=== PATIENT | male | born 1955 | race Native Hawaiian/Other Pacific Islander ===

== ENCOUNTER 2020-12-22 11:55 | Day surgery (SDC) | payer MEDICAID ==
[2020-12-22] VITALS (8 sets, daily range): BP systolic 120–161; BP diastolic 43–95
[2020-12-22] MEDS ORDERED: FOLI1TAB34 PO (13:00)
[2020-12-22] MEDS ORDERED: PHO667C PO (13:00)
[2020-12-22] MEDS ORDERED: midazolam 2 mg/2 ml injection ONE (13:49)
[2020-12-22] MEDS ORDERED: heparin 1,000unit/ml 10ml vial 10 ML ONE (13:49)
[2020-12-22] MEDS ORDERED: LIDOcaine 1%/PF 5ML 10 MG/ML VIAL ONE (13:49)
[2020-12-22] MEDS ORDERED: fentaNYL/PF 50MCG/1 ML 2ML syringe ONE (13:50)
[2020-12-22] MEDS ORDERED: tPA-cathflo 2 MG/2 ml IV flush ONE (13:57)
== END 2020-12-22 16:45 | disposition home or self-care (01) ==
LOC: SSTAY O 11:55
PROVIDERS: ATTEND Radiology Vascular & Interventional Radiology
DX: T82.590A Other mechanical complication of surgically created arteriovenous fistula, initial encounter (principal); E11.22 Type 2 diabetes mellitus with diabetic chronic kidney disease; I12.0 Hypertensive chronic kidney disease with stage 5 chronic kidney disease or end stage renal disease; N18.6 End stage renal disease
CPT/HCPCS: 36415; 36558; 36904; 76937; 87426; C1750; C1769; C1894; J1644; J2250; J2997; J3010; 99152; 99153; A9270

== ENCOUNTER 2022-08-20 21:28 | Emergency (ER) | payer MEDICAID ==
[~2022-08-20] VITALS: Ht 165.1 cm; Wt 77.3 kg
[~2022-08-20 21:28] MED LIST: ACET-812 PO; FOLI1TAB34 PO; PHO667C PO
[2022-08-20 21:38] VITALS: BP 124/70
[2022-08-20 22:09] LABS: BASOPHILS # (AUTO) 0.1 X10'3 (0-0.2); BASOPHILS % (AUTO) 1.1 % (0-1); EOSINOPHILS # (AUTO) 0.4 X10'3 (0-0.9); EOSINOPHILS % (AUTO) 4.9 % (0-6); HEMATOCRIT 27.7 % (42.0-52.0); HEMOGLOBIN 9.5 g/dl (14.0-17.9); LYMPHOCYTES # (AUTO) 1.1 X10'3 (1.1-4.8); MEAN CORPUSCULAR HEMOGLOBIN 32.5 PG (27.0-31.0); MEAN CORPUSCULAR HGB CONC 34.1 g/dL (33.0-36.5); MEAN CORPUSCULAR VOLUME 95.3 FL (78-98); MEAN PLATELET VOLUME 9.1 FL (7.4-10.4); MONOCYTES # (AUTO) 0.5 X10'3 (0-0.9); MONOCYTES % (AUTO) 6.1 % (2-12); NEUTROPHILS # (AUTO) 6.1 X10'3 (1.8-7.7); NEUTROPHILS % (AUTO) 74.9 % (42-75); PLATELET COUNT 110 X10'3 (140-440); RED BLOOD COUNT 2.91 X10'6 (4.70-6.10); RED CELL DISTRIBUTION WIDTH 14.9 % (11.5-14.5); WHITE BLOOD COUNT 8.1 X10'3 (4.5-11.0)
[2022-08-20 22:17] LABS: ALANINE AMINOTRANSFERASE 6 U/L (12-78); ALBUMIN 2.7 G/DL (3.4-5.0); ALBUMIN/GLOBULIN RATIO 0.6 (1.1-1.5); ALKALINE PHOSPHATASE 59 IU/L (46-116); ANION GAP 6 (8-16); ASPARTATE AMINO TRANSFERASE 14 U/L (10-37); BILIRUBIN,TOTAL 0.3 MG/DL (0.1-1.0); BLOOD UREA NITROGEN 37 MG/DL (7-18); CALCIUM 8.5 MG/DL (8.5-10.1); CHLORIDE 100 MMOL/L (99-107); CREATININE 6.17 MG/DL (0.60-1.10); GLUCOSE 103 MG/DL (70-104); POTASSIUM 3.6 MMOL/L (3.5-5.1); SODIUM 135 MMOL/L (135-145); TOTAL CARBON DIOXIDE 29.3 MMOL/L (24-32); TOTAL PROTEIN 6.9 G/DL (6.4-8.2); eGFR 9 ML/MIN
[2022-08-21] MEDS ORDERED: FOLI1TAB34 PO (23:34)
== END 2022-08-21 03:18 | disposition left against medical advice (07) ==
LOC: MERGE 21:29 → ER 21:29
DX: M79.89 Other specified soft tissue disorders (principal); Z53.21 Procedure and treatment not carried out due to patient leaving prior to being seen by health care provider
CPT/HCPCS: 36415; 80053; 83605; 84145; 85025; 87040; 87077; 87186

== ENCOUNTER 2022-08-21 15:31 | Inpatient (IN) | payer MEDICAID ==
[~2022-08-21] VITALS: Ht 165.1 cm; Wt 77.3 kg
[2022-08-21] MEDS ORDERED: piperacillin/tazo 3.375gm/50ml 50 ML IV ONE (16:05)
[2022-08-21] MEDS ORDERED: vancomycin/NS 1 GM ADD-VANTAGE 250 ML IV ONE (16:05)
[2022-08-21 16:26] LABS: BASOPHILS % (AUTO) 0.7 % (0-1); EOSINOPHILS # (AUTO) 0.4 X10'3 (0-0.9); EOSINOPHILS % (AUTO) 7.3 % (0-6); HEMATOCRIT 26.5 % (42.0-52.0); LYMPHOCYTES # (AUTO) 0.9 X10'3 (1.1-4.8); LYMPHOCYTES % (AUTO) 16.2 % (21-51); MEAN CORPUSCULAR HEMOGLOBIN 32.7 PG (27.0-31.0); MEAN CORPUSCULAR VOLUME 96.1 FL (78-98); MEAN PLATELET VOLUME 9.3 FL (7.4-10.4); MONOCYTES # (AUTO) 0.4 X10'3 (0-0.9); MONOCYTES % (AUTO) 7.8 % (2-12); NEUTROPHILS # (AUTO) 3.9 X10'3 (1.8-7.7); PLATELET COUNT 116 X10'3 (140-440); RED BLOOD COUNT 2.76 X10'6 (4.70-6.10); RED CELL DISTRIBUTION WIDTH 14.8 % (11.5-14.5); WHITE BLOOD COUNT 5.8 X10'3 (4.5-11.0)
[2022-08-21 16:28] LABS: ALANINE AMINOTRANSFERASE 6 U/L (12-78); ALBUMIN 2.6 G/DL (3.4-5.0); ALBUMIN/GLOBULIN RATIO 0.6 (1.1-1.5); ALKALINE PHOSPHATASE 58 IU/L (46-116); ANION GAP 3 (8-16); ASPARTATE AMINO TRANSFERASE 14 U/L (10-37); BILIRUBIN,TOTAL 0.3 MG/DL (0.1-1.0); BLOOD UREA NITROGEN 43 MG/DL (7-18); BUN/CREATININE RATIO 6.3 (5.4-32.0); C-REACTIVE PROTEIN 7.68 MG/DL (0.0-0.5); CALCIUM 8.8 MG/DL (8.5-10.1); CHLORIDE 101 MMOL/L (99-107); GLUCOSE 95 MG/DL (70-104); POTASSIUM 3.6 MMOL/L (3.5-5.1); SODIUM 135 MMOL/L (135-145); TOTAL CARBON DIOXIDE 30.8 MMOL/L (24-32); TOTAL PROTEIN 6.9 G/DL (6.4-8.2); eGFR 8 ML/MIN
[2022-08-21] MEDS ORDERED: magnesium 4gm in 100ml NS 100 ML IV PRN (17:35)
[2022-08-21] MEDS ORDERED: POTASSIUM BICARB 20meq eff tab 20 MEQ TABLET.EFF PO PRN ×2 (17:35)
[2022-08-21] MEDS ORDERED: magnesium 2GM in 50ml NS 50 ML IV PRN (17:35)
[2022-08-21] MEDS ORDERED: potassium CL 10mEq/100ml bag 100 ML IV PRN (17:35)
[2022-08-21] MEDS ORDERED: acetaminophen 325mg tablet PO PRN (17:35)
[2022-08-21] MEDS ORDERED: magnesium Cl slow-release 64mg tablet PO PRN (17:35)
[2022-08-21 18:10] LABS: MAGNESIUM 2.1 MG/DL (1.5-2.4)
[2022-08-21] MEDS: K and/or MAG REPLACEMENT MC SCH (20:00)
--- NOTE | 2022-08-21 21:51 | NUR ---
first page sent to hospitalist regarding critical lab value
[2022-08-21] MEDS ORDERED: FOLI1TAB34 PO (23:34)
[2022-08-22] MEDS ORDERED: piperacillin/tazo 3.375gm/50ml 50 ML IV SCH ×2 (06:26)
[2022-08-22 07:44] LABS: BASOPHILS # (AUTO) 0.1 X10'3 (0-0.2); BASOPHILS % (AUTO) 0.9 % (0-1); EOSINOPHILS # (AUTO) 0.4 X10'3 (0-0.9); EOSINOPHILS % (AUTO) 7.2 % (0-6); HEMATOCRIT 29.6 % (42.0-52.0); HEMOGLOBIN 9.6 g/dl (14.0-17.9); LYMPHOCYTES # (AUTO) 1.3 X10'3 (1.1-4.8); LYMPHOCYTES % (AUTO) 23.6 % (21-51); MEAN CORPUSCULAR HEMOGLOBIN 31.8 PG (27.0-31.0); MEAN CORPUSCULAR HGB CONC 32.4 g/dL (33.0-36.5); MEAN CORPUSCULAR VOLUME 98.2 FL (78-98); MEAN PLATELET VOLUME 8.6 FL (7.4-10.4); MONOCYTES # (AUTO) 0.5 X10'3 (0-0.9); MONOCYTES % (AUTO) 9.9 % (2-12); NEUTROPHILS # (AUTO) 3.2 X10'3 (1.8-7.7); NEUTROPHILS % (AUTO) 58.4 % (42-75); PLATELET COUNT 107 X10'3 (140-440); RED BLOOD COUNT 3.02 X10'6 (4.70-6.10); RED CELL DISTRIBUTION WIDTH 15.3 % (11.5-14.5); WHITE BLOOD COUNT 5.4 X10'3 (4.5-11.0)
[2022-08-22] MEDS: K and/or MAG REPLACEMENT MC SCH ×2 (07:57→20:00)
[2022-08-22] MEDS ORDERED: vancomycin/NS 1 GM ADD-VANTAGE 250 ML IV PRN (08:00)
[2022-08-22 08:16] LABS: ALBUMIN 2.4 G/DL (3.4-5.0); ANION GAP 9 (8-16); BLOOD UREA NITROGEN 48 MG/DL (7-18); BUN/CREATININE RATIO 6.4 (5.4-32.0); CALCIUM 8.5 MG/DL (8.5-10.1); CHLORIDE 102 MMOL/L (99-107); CREATININE 7.52 MG/DL (0.60-1.10); GLUCOSE 83 MG/DL (70-104); MAGNESIUM 2.1 MG/DL (1.5-2.4); POTASSIUM 4.2 MMOL/L (3.5-5.1); SODIUM 138 MMOL/L (135-145); TOTAL CARBON DIOXIDE 26.6 MMOL/L (24-32); VANCOMYCIN,RANDOM 14.7 UG/ML; eGFR 7 ML/MIN
[2022-08-22] MEDS ORDERED: vancomycin inj 500 MG in normal saline 100ml IV soln 100 ML IV ONE (08:25)
[2022-08-22] MEDS: calcium acetate 667mg (PhosLO) capsule PO SCH ×2 (13:00→21:00)
--- NOTE | 2022-08-22 17:59 | NUR ---
Spoke to OR charge; pt no longer going to surgery today. OK to eat dinner and NPO after midnight.
--- NOTE | 2022-08-23 01:10 | NUR ---
Patient in room ED 6. I have received report from Betina SANFORD and had the opportunity to ask questions and assume patient care. Addendum: 08/23/22 at 0235 by Lucero Torres RN Pt made it to floor @ 0115 on hospital bed. VSS, Pt afebrile. Pt on RA. No s/s of distress. Pt denies any c/o pain. BLL, call light within reach, frequently used items in reach, frequent rounding, litigation legal assistant socks on.Will continue to monitor.
[2022-08-23 01:15] VITALS: BP 130/80
--- NOTE | 2022-08-23 02:32 | NUR ---
Pts Daughter Cheryl . Pts daughter says pt speaks Chuukese.
[2022-08-23] MEDS: VANCOMYCIN LEVEL IV SCH (03:00)
--- NOTE | 2022-08-23 06:35 | NUR ---
Patient in room PCU 3018. I have received report from Isidra SANFORD and had the opportunity to ask questions and assume patient care.
--- NOTE | 2022-08-23 06:54 | NUR ---
Problems reprioritized. Patient report given, questions answered & plan of care reviewed with Vidhi SANFORD.
[2022-08-23 07:15] VITALS: BP 145/70
[2022-08-23] MEDS ORDERED: mannitol 12.5gm/50mL VIAL IV ONE (07:50)
[2022-08-23] MEDS ORDERED: normal saline 1000ml 100 ML IV PRN (07:50)
[2022-08-23] MEDS ORDERED: heparin 1,000 units/ml 10ml inj HE ONE ×2 (07:55→10:25)
[2022-08-23] MEDS: vitamin B comp w/Vit. C tab 1 TAB TABLET PO SCH (08:00)
[2022-08-23] MEDS: calcium acetate 667mg (PhosLO) capsule PO SCH ×3 (08:00→21:00)
[2022-08-23] MEDS: K and/or MAG REPLACEMENT MC SCH ×2 (08:00→20:00)
[2022-08-23 08:14] LABS: BASOPHILS # (AUTO) 0.1 X10'3 (0-0.2); BASOPHILS % (AUTO) 1.3 % (0-1); EOSINOPHILS # (AUTO) 0.5 X10'3 (0-0.9); EOSINOPHILS % (AUTO) 8.4 % (0-6); HEMATOCRIT 29.8 % (42.0-52.0); HEMOGLOBIN 9.9 g/dl (14.0-17.9); LYMPHOCYTES # (AUTO) 1.4 X10'3 (1.1-4.8); LYMPHOCYTES % (AUTO) 25.4 % (21-51); MEAN CORPUSCULAR HGB CONC 33.2 g/dL (33.0-36.5); MEAN CORPUSCULAR VOLUME 96.3 FL (78-98); MEAN PLATELET VOLUME 8.4 FL (7.4-10.4); MONOCYTES # (AUTO) 0.5 X10'3 (0-0.9); MONOCYTES % (AUTO) 9.1 % (2-12); NEUTROPHILS % (AUTO) 55.8 % (42-75); PLATELET COUNT 133 X10'3 (140-440); RED BLOOD COUNT 3.09 X10'6 (4.70-6.10); RED CELL DISTRIBUTION WIDTH 14.8 % (11.5-14.5); WHITE BLOOD COUNT 5.4 X10'3 (4.5-11.0)
[2022-08-23 08:46] LABS: ALBUMIN 2.7 G/DL (3.4-5.0); ANION GAP 11 (8-16); BLOOD UREA NITROGEN 53 MG/DL (7-18); BUN/CREATININE RATIO 6.2 (5.4-32.0); CALCIUM 8.3 MG/DL (8.5-10.1); CHLORIDE 101 MMOL/L (99-107); CREATININE 8.58 MG/DL (0.60-1.10); GLUCOSE 78 MG/DL (70-104); MAGNESIUM 2.3 MG/DL (1.5-2.4); POTASSIUM 4.3 MMOL/L (3.5-5.1); SODIUM 137 MMOL/L (135-145); VANCOMYCIN,RANDOM 18.9 UG/ML; eGFR 6 ML/MIN
[2022-08-23 11:00] VITALS: BP 147/95
[2022-08-23 15:00] VITALS: BP 112/73
--- NOTE | 2022-08-23 18:41 | NUR ---
Problems reprioritized. Patient report given, questions answered & plan of care reviewed with Leah Lynn RN.
--- NOTE | 2022-08-23 18:45 | NUR ---
Patient in room PCU 3018. I have received report from CHANCE SANFORD AND LEIGH SANFORD and had the opportunity to ask questions and assume patient care.
[2022-08-23 19:00] VITALS: BP 133/92
[2022-08-23 19:32] VITALS: BP 133/92
[2022-08-23] MEDS ORDERED: dextrose 50%-water 50ml dispensing syringe IV ONE (19:45)
[2022-08-23] MEDS ORDERED: midazolam 1 mg/ML 2ml injection ONE (21:25)
[2022-08-23] MEDS ORDERED: etomidate 2mg/ml inj. ONE (21:25)
[2022-08-23] MEDS ORDERED: morphine 2 MG/ML inj. syringe IV PRN (21:40)
[2022-08-23] MEDS ORDERED: labetalol 20mg/4ml (5mg/ml) syringe IV PRN (21:40)
[2022-08-23] MEDS ORDERED: hydrALAZINE 20mg/ml inj. IV PRN (21:40)
[2022-08-23] MEDS ORDERED: ringers solution, lacted 1,000 ML IV SCH (21:40)
[2022-08-23] MEDS ORDERED: ondansetron/PF 4mg/2ml inj IV PRN (21:40)
[2022-08-23] MEDS ORDERED: fentaNYL/PF 50MCG/1 ML 2ML syringe IV PRN ×2 (21:40)
[2022-08-23] MEDS ORDERED: morphine 4 MG/ML inj SYRINge IV PRN (21:40)
[2022-08-23] MEDS ORDERED: sevoflurane 250ml liquid IH ONE (21:58)
--- NOTE | 2022-08-23 22:00 | NUR ---
PATIENT LEFT WITH OR TECH FOR REMOVAL OF INFECTED ARTERIAL FISTULA.
[2022-08-23] MEDS ORDERED: albumin (Human) 5% 250ml 250 ML IV ONE (22:20)
[2022-08-23] MEDS ORDERED: heparin 10,000 units/1 ML INJ ONE (22:26)
[2022-08-23] MEDS ORDERED: vancomycin 1,000mg inj ONE (22:32)
[2022-08-24] VITALS (17 sets, daily range): BP systolic 98–134; BP diastolic 58–79
--- NOTE | 2022-08-24 00:15 | NUR ---
PT ARRIVED TO VIA BED ACCOMPANIED BY DR CROOK-ANESTHESIA REPORT GIVEN, PT SLEEPY, VSS, LEFT ARM-WRAPPED WITH WOUND VAC AT 75MMHG SUCTION-CDI, DOPPLER TO ULNAR PULSE PRESENTM FINGERS WARM/PINK, PIV 20G TO RIGHT F/A, CHRISTIANO TO RIGHT CHEST-HAD HD TODAY.
--- NOTE | 2022-08-24 01:05 | NUR ---
HAD DTRS COME IN TO HELP WITH TRANSLATION-PT COLD AND PAINFUL IN LEFT ARM, PA HUGGER APPLIED AND FENTANYL 50MCG GIVEN FOR COMFORT-PT NOW WARM AND RESTING COMFORTABLY, VSS, PULSE STILL PRESENT VIA DOPPLER TO LEFT WRIST, DRSG-CDI WITH WV AT 75MMHG, TAKEN TO CICU-BED 2006 FOR OBSERVATION FOR THE THE NOC, REPORT GIVEN TO ANA M LANGE RN-ALL QUESTIONS ANSWERED, DTRS PRESENT WELL TO ASSIST WITH TRANSLATION. TELE BOX WITH PT.
--- NOTE | 2022-08-24 01:30 | NUR ---
Received pt from recovery at 0110; pt drowsy but arousable; placed on monitor w/VSS; sats good on room air; kerlix drsg in place over wound vac in LFA; fingers on L hand warm, good color; good pulse w/doppler to ulnar artery L wrist. Daughter Pauline at bedside to help w/and translations needed.
[2022-08-24] MEDS: VANCOMYCIN LEVEL IV SCH (03:00)
[2022-08-24] MEDS: HYDROcodone/acetaminophen 10/325mg tab PO PRN (04:59)
--- NOTE | 2022-08-24 05:20 | NUR ---
Pt sleeping last few hours; VSS, pulse unchanged, strong w/doppler; no signs of bleeding, minimal output in wound vac; pt awake, incontinent small amt of urine, c/o pain 10/10 in L shoulder and forearm, medicated w/norco for pain; daughter remains at bedside to interpret; report given to CLARIBEL Leon and pt transfered in bed on tele to room 3028a.
--- NOTE | 2022-08-24 05:25 | NUR ---
PATIENT TRANSFERRED TO ROOM 3018B FROM CICU. PLACED COMFORTABLE IN BED. VITAL SIGNS TAKEN AND RECORDED.
--- NOTE | 2022-08-24 06:30 | NUR ---
Problems reprioritized. Patient report given, questions answered & plan of care reviewed with AMANDA SANFORD.
[2022-08-24 07:29] LABS: BASOPHILS # (AUTO) 0.1 X10'3 (0-0.2); BASOPHILS % (AUTO) 1.1 % (0-1); EOSINOPHILS # (AUTO) 0.3 X10'3 (0-0.9); HEMATOCRIT 25.1 % (42.0-52.0); HEMOGLOBIN 8.6 g/dl (14.0-17.9); LYMPHOCYTES % (AUTO) 16.9 % (21-51); MEAN CORPUSCULAR HEMOGLOBIN 32.6 PG (27.0-31.0); MEAN CORPUSCULAR HGB CONC 34.3 g/dL (33.0-36.5); MEAN CORPUSCULAR VOLUME 94.9 FL (78-98); MONOCYTES # (AUTO) 0.5 X10'3 (0-0.9); MONOCYTES % (AUTO) 8.2 % (2-12); NEUTROPHILS # (AUTO) 3.9 X10'3 (1.8-7.7); NEUTROPHILS % (AUTO) 67.8 % (42-75); PLATELET COUNT 106 X10'3 (140-440); RED BLOOD COUNT 2.65 X10'6 (4.70-6.10); RED CELL DISTRIBUTION WIDTH 14.6 % (11.5-14.5); WHITE BLOOD COUNT 5.8 X10'3 (4.5-11.0)
[2022-08-24] MEDS ORDERED: vancomycin inj 500 MG in normal saline 100ml IV soln 100 ML IV PRN (08:00)
[2022-08-24] MEDS: K and/or MAG REPLACEMENT MC SCH ×2 (08:00→20:00)
[2022-08-24 08:06] LABS: ALBUMIN 2.9 G/DL (3.4-5.0); ANION GAP 12 (8-16); BLOOD UREA NITROGEN 28 MG/DL (7-18); BUN/CREATININE RATIO 4.8 (5.4-32.0); CALCIUM 7.7 MG/DL (8.5-10.1); CHLORIDE 103 MMOL/L (99-107); CREATININE 5.78 MG/DL (0.60-1.10); GLUCOSE 82 MG/DL (70-104); POTASSIUM 3.8 MMOL/L (3.5-5.1); SODIUM 139 MMOL/L (135-145); TOTAL CARBON DIOXIDE 24.5 MMOL/L (24-32); eGFR 10 ML/MIN
[2022-08-24] MEDS: vitamin B comp w/Vit. C tab 1 TAB TABLET PO SCH (08:56)
[2022-08-24] MEDS: calcium acetate 667mg (PhosLO) capsule PO SCH ×3 (08:56→20:47)
[2022-08-24] MEDS ORDERED: normal saline 1000ml 100 ML IV PRN (11:15)
[2022-08-24] MEDS ORDERED: heparin 1,000 units/ml 10ml inj HE ONE (11:20)
[2022-08-24] MEDS: cefepime 1GM/NS ADD-VANTAGE 100 ML IV SCH (13:01)
--- NOTE | 2022-08-24 18:47 | NUR ---
Report given to Leah Lynn RN, who is resuming care, Pt awake in bed eating dinner with daughters at bedside. No current distress on new concerns. Reviewed [facility] Student Nurse charting.
--- NOTE | 2022-08-24 18:48 | NUR ---
Report given to Raf SANFORD, resuming care. Pt is eating dinner with daughters at the bedside. No changes in condition and not in distress. Bianca Naik RN reviewed care and charting.
--- NOTE | 2022-08-24 18:50 | NUR ---
Patient in room PCU 3018. I have received report from AMANDA SANFORD and had the opportunity to ask questions and assume patient care.
[2022-08-24] MEDS: HYDROcodone/acetaminophen 5mg/325mg tablet PO PRN (20:48)
[2022-08-25] VITALS (7 sets, daily range): BP systolic 104–123; BP diastolic 68–93
[2022-08-25] MEDS: VANCOMYCIN LEVEL IV SCH (03:00)
--- NOTE | 2022-08-25 06:30 | NUR ---
Problems reprioritized. Patient report given, questions answered & plan of care reviewed with AMANDA SANFORD.
[2022-08-25 07:18] LABS: BASOPHILS # (AUTO) 0.1 X10'3 (0-0.2); BASOPHILS % (AUTO) 1.1 % (0-1); EOSINOPHILS # (AUTO) 0.4 X10'3 (0-0.9); EOSINOPHILS % (AUTO) 7.4 % (0-6); HEMATOCRIT 28.1 % (42.0-52.0); HEMOGLOBIN 9.8 g/dl (14.0-17.9); LYMPHOCYTES # (AUTO) 1.1 X10'3 (1.1-4.8); LYMPHOCYTES % (AUTO) 20.8 % (21-51); MEAN CORPUSCULAR HEMOGLOBIN 32.8 PG (27.0-31.0); MEAN CORPUSCULAR HGB CONC 34.8 g/dL (33.0-36.5); MEAN CORPUSCULAR VOLUME 94.4 FL (78-98); MONOCYTES # (AUTO) 0.5 X10'3 (0-0.9); NEUTROPHILS # (AUTO) 3.2 X10'3 (1.8-7.7); NEUTROPHILS % (AUTO) 61.7 % (42-75); PLATELET COUNT 124 X10'3 (140-440); RED BLOOD COUNT 2.97 X10'6 (4.70-6.10); RED CELL DISTRIBUTION WIDTH 14.9 % (11.5-14.5); WHITE BLOOD COUNT 5.2 X10'3 (4.5-11.0)
[2022-08-25 07:44] LABS: ALBUMIN 2.8 G/DL (3.4-5.0); ANION GAP 9 (8-16); BLOOD UREA NITROGEN 40 MG/DL (7-18); BUN/CREATININE RATIO 5.4 (5.4-32.0); CALCIUM 8.3 MG/DL (8.5-10.1); CHLORIDE 103 MMOL/L (99-107); CREATININE 7.37 MG/DL (0.60-1.10); GLUCOSE 89 MG/DL (70-104); MAGNESIUM 2.1 MG/DL (1.5-2.4); POTASSIUM 4.5 MMOL/L (3.5-5.1); SODIUM 137 MMOL/L (135-145); TOTAL CARBON DIOXIDE 25.3 MMOL/L (24-32); eGFR 7 ML/MIN
[2022-08-25 07:52] LABS: VANCOMYCIN,TROUGH 23.1 UG/ML (6.0-14.0)
[2022-08-25] MEDS: K and/or MAG REPLACEMENT MC SCH ×2 (08:00→20:00)
--- NOTE | 2022-08-25 08:07 | NUR ---
Page to Dr Mccarthy regarding critical vanco trough. Bianca, [facility] [address]018[address] FYI: Vanco trough 23.1. But it was not given yesterday and is only a prn dose for 12-15.
[2022-08-25] MEDS: vitamin B comp w/Vit. C tab 1 TAB TABLET PO SCH (08:20)
[2022-08-25] MEDS: calcium acetate 667mg (PhosLO) capsule PO SCH ×3 (08:20→21:52)
[2022-08-25] MEDS: cefepime 1GM/NS ADD-VANTAGE 100 ML IV SCH (08:20)
[2022-08-25] MEDS: heparin, porcine 5000 units/ml vial SQ SCH ×2 (08:21→20:00)
[2022-08-25] MEDS ORDERED: vancomycin/NS 1 GM ADD-VANTAGE 250 ML IV PRN (12:44)
[2022-08-25] MEDS ORDERED: vancomycin inj 500 MG in normal saline 100ml IV soln 100 ML IV PRN (12:48)
--- NOTE | 2022-08-25 18:54 | NUR ---
Report given to Ellis SANFORD. Pt is eating dinner with family by the bedside. Bianca SANFORD looked over care and charting.
--- NOTE | 2022-08-25 19:14 | NUR ---
Report given to Ellis SANFORD, patient in bed with family at bedside. No current complaints.
[2022-08-25] MEDS: HYDROcodone/acetaminophen 5mg/325mg tablet PO PRN (20:14)
[2022-08-26] VITALS (10 sets, daily range): BP systolic 65–130; BP diastolic 38–80
[2022-08-26] MEDS: VANCOMYCIN LEVEL IV SCH (03:00)
[2022-08-26 06:26] LABS: BASOPHILS % (AUTO) 0.9 % (0-1); EOSINOPHILS # (AUTO) 0.4 X10'3 (0-0.9); EOSINOPHILS % (AUTO) 8.3 % (0-6); HEMATOCRIT 26.8 % (42.0-52.0); LYMPHOCYTES # (AUTO) 0.9 X10'3 (1.1-4.8); LYMPHOCYTES % (AUTO) 17.7 % (21-51); MEAN CORPUSCULAR HGB CONC 33.5 g/dL (33.0-36.5); MEAN CORPUSCULAR VOLUME 95.5 FL (78-98); MEAN PLATELET VOLUME 8.5 FL (7.4-10.4); MONOCYTES # (AUTO) 0.4 X10'3 (0-0.9); MONOCYTES % (AUTO) 8.2 % (2-12); NEUTROPHILS # (AUTO) 3.4 X10'3 (1.8-7.7); NEUTROPHILS % (AUTO) 64.9 % (42-75); PLATELET COUNT 111 X10'3 (140-440); RED CELL DISTRIBUTION WIDTH 14.9 % (11.5-14.5); WHITE BLOOD COUNT 5.3 X10'3 (4.5-11.0)
[2022-08-26 06:56] LABS: ALBUMIN 2.6 G/DL (3.4-5.0); ANION GAP 11 (8-16); BLOOD UREA NITROGEN 51 MG/DL (7-18); BUN/CREATININE RATIO 5.8 (5.4-32.0); CALCIUM 8.6 MG/DL (8.5-10.1); CHLORIDE 102 MMOL/L (99-107); CREATININE 8.74 MG/DL (0.60-1.10); GLUCOSE 94 MG/DL (70-104); POTASSIUM 4.5 MMOL/L (3.5-5.1); SODIUM 136 MMOL/L (135-145); TOTAL CARBON DIOXIDE 22.6 MMOL/L (24-32); VANCOMYCIN,RANDOM 23.3 UG/ML; eGFR 6 ML/MIN
--- NOTE | 2022-08-26 07:17 | NUR ---
Patient in room PCU 3018. I have received report from Ellis SANFORD and had the opportunity to ask questions and assume patient care.
--- NOTE | 2022-08-26 07:19 | NUR ---
Problems reprioritized. Patient report given, questions answered & plan of care reviewed with MAY. Addendum: 08/26/22 at 0719 by Richard Mckay RN Amended: Links added.
[2022-08-26] MEDS ORDERED: heparin 1,000 units/ml 10ml inj HE ONE ×2 (08:00→09:50)
[2022-08-26] MEDS ORDERED: EPOETIN ALFA-EPBX 20,000 UNIT/ML 1 ML MDV IV ONE (08:00)
[2022-08-26] MEDS: K and/or MAG REPLACEMENT MC SCH ×2 (08:00→20:00)
[2022-08-26] MEDS ORDERED: normal saline 1000ml 100 ML IV PRN (08:00)
--- NOTE | 2022-08-26 08:53 | NUR ---
Initial: Pt admitted w/ LUE cellulitis and infected dialysis graft per EMR. Currently on Renal diet w/ avg intake 65% x 4 meals though is up to 100% most recent 2, will be meeting est needs if PO trends continue. Pt on HD, last treatment 08/23 w/ 1457mL out per documentation. LBM 08/24. No nutrition intervention implemented at this time, will continue to monitor. Recs; 1. Continue Renal diet as tolerated 2. Bowel care per rx 3. Scaled wts w/ HD Addendum: 08/26/22 at [address] Amended: Links added.
[2022-08-26] MEDS: vitamin B comp w/Vit. C tab 1 TAB TABLET PO SCH (09:15)
[2022-08-26] MEDS: heparin, porcine 5000 units/ml vial SQ SCH ×2 (09:15→19:59)
[2022-08-26] MEDS: calcium acetate 667mg (PhosLO) capsule PO SCH ×3 (09:16→20:52)
[2022-08-26] MEDS ORDERED: cefazolin/dext.iso 2gm/100ml 100 ML IV SCH (11:45)
[2022-08-26] MEDS: ondansetron/PF 4mg/2ml inj IV PRN ×2 (12:11→18:24)
[2022-08-26] MEDS: normal saline 1000ml 1,000 ML IVB SCH ×4 (12:15→15:15)
[2022-08-26] MEDS ORDERED: albumin (human) 25% 100 ML IV solution IV ONE (12:15)
[2022-08-26 12:24] LABS: ABG BASE EXCESS -6.7 mmol/L (-2.0-2.0); ABG HCO3 18.7 mmol/L (22.0-26.0); ABG OXYGEN SATURATION 97.3 % (94-97); ALLEN'S TEST POSITIVE; FCOHb 0.3 % (0.0-3.9); FLOW 4 L/min; FMetHb 0.2 % (0.0-1.5); FO2Hb 96.8 % (94-97); PATIENT TEMPERATURE 36.5; TOTAL HEMOGLOBIN 9.5 G/dl (14.0-17.9)
[2022-08-26] MEDS ORDERED: normal saline 1000ml 1,000 ML IV ONE (12:25)
[2022-08-26] MEDS: albumin (human) 25% 100 ML IV solution IV SCH (12:45)
[2022-08-26 12:58] LABS: BASOPHILS % (AUTO) 0.8 % (0-1); EOSINOPHILS # (AUTO) 0.2 X10'3 (0-0.9); EOSINOPHILS % (AUTO) 4.6 % (0-6); LYMPHOCYTES # (AUTO) 1.9 X10'3 (1.1-4.8); LYMPHOCYTES % (AUTO) 36.8 % (21-51); MEAN CORPUSCULAR HEMOGLOBIN 32.3 PG (27.0-31.0); MEAN CORPUSCULAR HGB CONC 33.2 g/dL (33.0-36.5); MEAN CORPUSCULAR VOLUME 97.1 FL (78-98); MEAN PLATELET VOLUME 8.3 FL (7.4-10.4); MONOCYTES # (AUTO) 0.3 X10'3 (0-0.9); MONOCYTES % (AUTO) 5.8 % (2-12); NEUTROPHILS # (AUTO) 2.7 X10'3 (1.8-7.7); RED BLOOD COUNT 1.99 X10'6 (4.70-6.10); RED CELL DISTRIBUTION WIDTH 14.9 % (11.5-14.5); WHITE BLOOD COUNT 5.3 X10'3 (4.5-11.0)
[2022-08-26 13:05] LABS: HEMATOCRIT 19.3 % (42.0-52.0); HEMOGLOBIN 6.4 g/dl (14.0-17.9)
[2022-08-26 13:26] LABS: PLATELET COUNT 95 X10'3 (140-440)
--- NOTE | 2022-08-26 13:39 | NUR ---
Rapid response called at 1200 hrs, patient was having dialysis, appeared to have seizure like activity, and B/P was 65/35. Patient was bolused 200mls NACL done by parmjit Morrow dialysis nurse. Dr harley present for rapid. Labs drawn. lab called to say they felt labs could have been affected by bolus. story editor is planning on redrawing labs prior to dialysis treatment. Dr harley paged with regards this . patient current B/P 117/68. will continue to monitor
[2022-08-26 14:35] LABS: ALANINE AMINOTRANSFERASE 9 U/L (12-78); ALBUMIN 3.3 G/DL (3.4-5.0); ALBUMIN/GLOBULIN RATIO 1.1 (1.1-1.5); ALKALINE PHOSPHATASE 54 IU/L (46-116); ANION GAP 10 (8-16); ASPARTATE AMINO TRANSFERASE 17 U/L (10-37); BILIRUBIN,TOTAL 0.3 MG/DL (0.1-1.0); BLOOD UREA NITROGEN 42 MG/DL (7-18); BUN/CREATININE RATIO 6.2 (5.4-32.0); CALCIUM 8.2 MG/DL (8.5-10.1); CHLORIDE 105 MMOL/L (99-107); CREATININE 6.81 MG/DL (0.60-1.10); GLUCOSE 82 MG/DL (70-104); POTASSIUM 4.2 MMOL/L (3.5-5.1); SODIUM 137 MMOL/L (135-145); TOTAL CARBON DIOXIDE 21.9 MMOL/L (24-32); TOTAL PROTEIN 6.4 G/DL (6.4-8.2); eGFR 8 ML/MIN
--- NOTE | 2022-08-26 14:42 | NUR ---
CRITICAL TROP 101, DR EVANS AWAITING CALL BACK
[2022-08-26] MEDS ORDERED: cefepime 1GM/NS ADD-VANTAGE 100 ML IV SCH (15:00)
--- NOTE | 2022-08-26 17:10 | NUR ---
patient was seen by Dr balderrama one unit or PRBC ordered and being infused by territory account executive sarah . patient appears stable at this time
--- NOTE | 2022-08-26 17:17 | NUR ---
hemogram ordered for 2100 hrs
--- NOTE | 2022-08-26 18:00 | NUR ---
daughter present patient appears stable
[2022-08-26 18:35] LABS: HEMATOCRIT 27.3 % (42.0-52.0); HEMOGLOBIN 9.2 g/dl (14.0-17.9); MEAN CORPUSCULAR HEMOGLOBIN 31.1 PG (27.0-31.0); MEAN CORPUSCULAR HGB CONC 33.6 g/dL (33.0-36.5); MEAN CORPUSCULAR VOLUME 92.7 FL (78-98); MEAN PLATELET VOLUME 7.5 FL (7.4-10.4); PLATELET COUNT 90 X10'3 (140-440); RED BLOOD COUNT 2.94 X10'6 (4.70-6.10); RED CELL DISTRIBUTION WIDTH 16.5 % (11.5-14.5); WHITE BLOOD COUNT 3.6 X10'3 (4.5-11.0)
--- NOTE | 2022-08-26 18:56 | NUR ---
Problems reprioritized. Patient report given, questions answered & plan of care reviewed with Ellis SANFORD.
[2022-08-26] MEDS: HYDROcodone/acetaminophen 5mg/325mg tablet PO PRN (20:00)
[2022-08-26] MEDS ORDERED: aminophylline 500mg/20ml vial IV PRN (22:45)
[2022-08-26] MEDS ORDERED: heparin 10,000 units/1 ML INJ IV PRN (22:45)
[2022-08-26] MEDS ORDERED: metoprolol tartrate 1mg/ml inj IV PRN (22:45)
[2022-08-26] MEDS ORDERED: heparin 10,000 units/1 ML INJ IV ONE (22:45)
[2022-08-26] MEDS ORDERED: nitroGLYCERIN 0.4mg SUBLingual tab SL PRN (22:45)
[2022-08-26] MEDS ORDERED: regadenoson 0.4mg/5ml syringe IV PRN (22:45)
[2022-08-26] MEDS ORDERED: heparin 25,000 UNIT/250ml bag 250 ML IV PRN (22:45)
[2022-08-26] MEDS ORDERED: PERFLUTREN PROTEIN-A MICROSPHR (Optison) 0.22 MG/ML 3ML VIAL IV ONE (22:55)
[2022-08-27 02:00] VITALS: BP 130/77
[2022-08-27] MEDS: VANCOMYCIN LEVEL IV SCH (03:00)
--- NOTE | 2022-08-27 06:07 | NUR ---
Problems reprioritized. Patient report given, questions answered & plan of care reviewed with QIAN. Addendum: 08/27/22 at 0608 by Richard Mckay RN Amended: Links added.
--- NOTE | 2022-08-27 06:30 | NUR ---
Patient in room PCU 3018. I have received report from Ellis SANFORD and had the opportunity to ask questions and assume patient care.
--- NOTE | 2022-08-27 06:42 | NUR ---
Problems reprioritized. Patient report given, questions answered & plan of care reviewed with APRIL LAUGHLIN. Addendum: 08/27/22 at 0643 by Richard Mckay RN Amended: Links added.
[2022-08-27 07:14] LABS: ALANINE AMINOTRANSFERASE 16 U/L (12-78); ALBUMIN 3.2 G/DL (3.4-5.0); ALBUMIN/GLOBULIN RATIO 0.9 (1.1-1.5); ALKALINE PHOSPHATASE 61 IU/L (46-116); ANION GAP 5 (8-16); ASPARTATE AMINO TRANSFERASE 33 U/L (10-37); BILIRUBIN,TOTAL 0.4 MG/DL (0.1-1.0); BLOOD UREA NITROGEN 18 MG/DL (7-18); CALCIUM 8.7 MG/DL (8.5-10.1); CHLORIDE 103 MMOL/L (99-107); CREATININE 4.41 MG/DL (0.60-1.10); GLUCOSE 85 MG/DL (70-104); SODIUM 138 MMOL/L (135-145); TOTAL CARBON DIOXIDE 29.9 MMOL/L (24-32); TOTAL PROTEIN 6.9 G/DL (6.4-8.2); eGFR 13 ML/MIN
[2022-08-27 07:18] LABS: BUN/CREATININE RATIO 4.1 (5.4-32.0)
--- NOTE | 2022-08-27 07:31 | NUR ---
Paged Dr. Mccarthy regarding pts troponin level of 340, trending down. Message: [id number], Saurabh Zuniga. Pt has a critical trop of 340, it is trending down. [facility] [id number].
[2022-08-27 08:00] VITALS: BP 146/79
[2022-08-27] MEDS: K and/or MAG REPLACEMENT MC SCH ×2 (08:00→19:53)
[2022-08-27 08:45] LABS: BASOPHILS % (AUTO) 0.9 % (0-1); EOSINOPHILS # (AUTO) 0.3 X10'3 (0-0.9); EOSINOPHILS % (AUTO) 9.7 % (0-6); HEMATOCRIT 26.6 % (42.0-52.0); HEMOGLOBIN 8.9 g/dl (14.0-17.9); LYMPHOCYTES # (AUTO) 0.7 X10'3 (1.1-4.8); LYMPHOCYTES % (AUTO) 20.2 % (21-51); MEAN CORPUSCULAR HEMOGLOBIN 31.1 PG (27.0-31.0); MEAN CORPUSCULAR HGB CONC 33.6 g/dL (33.0-36.5); MEAN CORPUSCULAR VOLUME 92.7 FL (78-98); MEAN PLATELET VOLUME 7.8 FL (7.4-10.4); MONOCYTES # (AUTO) 0.4 X10'3 (0-0.9); MONOCYTES % (AUTO) 10.5 % (2-12); NEUTROPHILS % (AUTO) 58.7 % (42-75); PLATELET COUNT 90 X10'3 (140-440); RED BLOOD COUNT 2.87 X10'6 (4.70-6.10); WHITE BLOOD COUNT 3.4 X10'3 (4.5-11.0)
[2022-08-27] MEDS: vitamin B comp w/Vit. C tab 1 TAB TABLET PO SCH (09:10)
[2022-08-27] MEDS: calcium acetate 667mg (PhosLO) capsule PO SCH ×3 (09:10→19:52)
[2022-08-27 12:00] VITALS: BP 136/84
[2022-08-27] MEDS: albumin (human) 25% 100 ML IV solution IV SCH (12:15)
[2022-08-27 18:00] VITALS: BP 146/84
[2022-08-27] MEDS: heparin, porcine 5000 units/ml vial SQ SCH (19:53)
[2022-08-27 22:00] VITALS: BP 132/78
[2022-08-28 02:00] VITALS: BP 128/75
[2022-08-28 06:00] VITALS: BP 152/77
[2022-08-28] MEDS ORDERED: heparin 1,000 units/ml 10ml inj HE ONE ×2 (08:00→09:30)
[2022-08-28] MEDS: K and/or MAG REPLACEMENT MC SCH ×2 (08:00→19:34)
[2022-08-28] MEDS ORDERED: EPOETIN ALFA-EPBX 20,000 UNIT/ML 1 ML MDV IV ONE (08:00)
[2022-08-28] MEDS ORDERED: heparin 1,000unit/ml 10ml vial 10 ML IV ONE (08:00)
[2022-08-28 08:17] LABS: EOSINOPHILS # (AUTO) 0.5 X10'3 (0-0.9); EOSINOPHILS % (AUTO) 10.7 % (0-6); LYMPHOCYTES # (AUTO) 0.9 X10'3 (1.1-4.8); LYMPHOCYTES % (AUTO) 21.3 % (21-51); MEAN CORPUSCULAR HEMOGLOBIN 31.2 PG (27.0-31.0); MEAN CORPUSCULAR HGB CONC 33.2 g/dL (33.0-36.5); MEAN CORPUSCULAR VOLUME 94.1 FL (78-98); MEAN PLATELET VOLUME 8.1 FL (7.4-10.4); MONOCYTES # (AUTO) 0.4 X10'3 (0-0.9); MONOCYTES % (AUTO) 9.1 % (2-12); NEUTROPHILS # (AUTO) 2.6 X10'3 (1.8-7.7); NEUTROPHILS % (AUTO) 57.9 % (42-75); PLATELET COUNT 118 X10'3 (140-440); RED BLOOD COUNT 3.19 X10'6 (4.70-6.10); RED CELL DISTRIBUTION WIDTH 16.9 % (11.5-14.5); WHITE BLOOD COUNT 4.4 X10'3 (4.5-11.0)
[2022-08-28 08:26] LABS: ALANINE AMINOTRANSFERASE 13 U/L (12-78); ALBUMIN 3.4 G/DL (3.4-5.0); ALBUMIN/GLOBULIN RATIO 0.8 (1.1-1.5); ALKALINE PHOSPHATASE 66 IU/L (46-116); ANION GAP 8 (8-16); ASPARTATE AMINO TRANSFERASE 30 U/L (10-37); BILIRUBIN,TOTAL 0.4 MG/DL (0.1-1.0); BLOOD UREA NITROGEN 27 MG/DL (7-18); CALCIUM 9.3 MG/DL (8.5-10.1); CHLORIDE 104 MMOL/L (99-107); CREATININE 6.06 MG/DL (0.60-1.10); GLUCOSE 82 MG/DL (70-104); MAGNESIUM 2.2 MG/DL (1.5-2.4); PHOSPHORUS 3.5 MG/DL (2.3-4.5); POTASSIUM 4.3 MMOL/L (3.5-5.1); SODIUM 139 MMOL/L (135-145); TOTAL PROTEIN 7.7 G/DL (6.4-8.2); eGFR 9 ML/MIN
[2022-08-28 08:28] LABS: BUN/CREATININE RATIO 4.5 (5.4-32.0)
[2022-08-28] MEDS: HYDROcodone/acetaminophen 10/325mg tab PO PRN (08:53)
--- NOTE | 2022-08-28 09:21 | NUR ---
Called Nelsy- MILAD RN; states Liza RN will be doing HD today and she will contact EEG on arrival to coordinate schedule.
[2022-08-28] MEDS: vitamin B comp w/Vit. C tab 1 TAB TABLET PO SCH (09:34)
[2022-08-28] MEDS: heparin, porcine 5000 units/ml vial SQ SCH ×2 (09:35→19:34)
[2022-08-28] MEDS: calcium acetate 667mg (PhosLO) capsule PO SCH ×3 (09:35→19:33)
--- NOTE | 2022-08-28 09:57 | NUR ---
Message: Michael Deleon, has been having decreased appetite. Can we order supplements with meals? thanks braulio [id number] Custom Responses: promotional table spacer Transaction number: [id number] Addendum: 08/28/22 at 1409 by Braulio Owens RN INCORRECT PATIENT
[2022-08-28] MEDS: heparin 1,000 units/ml 10ml inj IV ONE ×2 (10:58→13:42)
[2022-08-28 11:00] VITALS: BP 119/66
[2022-08-28] MEDS: albumin (human) 25% 100 ML IV solution IV SCH (12:15)
[2022-08-28 13:11] LABS: HBSAG SCREEN Negative (Negative)
[2022-08-28] MEDS: ondansetron/PF 4mg/2ml inj IV PRN (14:05)
--- NOTE | 2022-08-28 14:09 | NUR ---
This RN in room with HD RN. Pt trying to move and suddenly had a blank stare and began grunting, pt not responding to verbal commands. Family out of room at this time. 1350: notified Pt in junctional rhythm. Pt not responding to sternall rubs, BP & HR improved. see HD notes for details. unit control worker in room, TIRE FIXER Mariluz in room-aware of rhythm and vitals Pt regained consciousness, nauseous, VSS. zofran given.
--- NOTE | 2022-08-28 14:19 | NUR ---
Message: [facility] [id number]; had another episode during HD- blank stare & grunting w/ junctional HR in 30s briefly & not responding to sternal rub. ETL BI DEVELOPER Kaila on unit, Vitals improved & pt now responding to verbal commands. thx braulio [id number] Custom Responses: promotional table spacer Transaction number: [id number]
[2022-08-28 15:00] VITALS: BP 108/71
[2022-08-28 15:37] LABS: CHOL/HDL RATIO 3.2 (0.00-4.99); CHOLESTEROL 131 MG/DL (0-200); HDL CHOLESTEROL 41 MG/DL (35-60); LDL CHOLESTEROL 76 MG/DL (50-100); TRIGLYCERIDES 69 MG/DL (20-135)
--- NOTE | 2022-08-28 18:40 | NUR ---
Problems reprioritized. Patient report given, questions answered & plan of care reviewed with CLARIBEL Sullivan.
--- NOTE | 2022-08-28 20:00 | NUR ---
Patient's wound dressing clean, dry and intact. Instructed to monitor in case of any bleeding episode until assessed again by wound care team
--- NOTE | 2022-08-28 20:00 | NUR ---
Patient's Left forearm dressing clean, dry and intact. Instructed to monitor for any bleeding episode until assessed by wound care in the morning. Addendum: 08/29/22 at 0051 by Nate Owens RN Amended: Links added.
[2022-08-28 22:00] VITALS: BP 94/64
[2022-08-29 02:00] VITALS: BP 91/57
[2022-08-29 06:00] VITALS: BP 155/89
[2022-08-29 07:18] LABS: BASOPHILS # (AUTO) 0.1 X10'3 (0-0.2); EOSINOPHILS # (AUTO) 0.5 X10'3 (0-0.9); EOSINOPHILS % (AUTO) 10.1 % (0-6); HEMATOCRIT 28.5 % (42.0-52.0); HEMOGLOBIN 9.6 g/dl (14.0-17.9); LYMPHOCYTES % (AUTO) 20.3 % (21-51); MEAN CORPUSCULAR HEMOGLOBIN 31.5 PG (27.0-31.0); MEAN CORPUSCULAR HGB CONC 33.7 g/dL (33.0-36.5); MEAN CORPUSCULAR VOLUME 93.5 FL (78-98); MEAN PLATELET VOLUME 8.1 FL (7.4-10.4); MONOCYTES # (AUTO) 0.4 X10'3 (0-0.9); MONOCYTES % (AUTO) 8.1 % (2-12); NEUTROPHILS # (AUTO) 3.1 X10'3 (1.8-7.7); NEUTROPHILS % (AUTO) 60.5 % (42-75); PLATELET COUNT 119 X10'3 (140-440); RED BLOOD COUNT 3.04 X10'6 (4.70-6.10); RED CELL DISTRIBUTION WIDTH 16.8 % (11.5-14.5); WHITE BLOOD COUNT 5.1 X10'3 (4.5-11.0)
[2022-08-29 07:32] LABS: ALANINE AMINOTRANSFERASE 12 U/L (12-78); ALBUMIN 3.2 G/DL (3.4-5.0); ALBUMIN/GLOBULIN RATIO 0.8 (1.1-1.5); ALKALINE PHOSPHATASE 66 IU/L (46-116); ANION GAP 6 (8-16); ASPARTATE AMINO TRANSFERASE 28 U/L (10-37); BILIRUBIN,TOTAL 0.4 MG/DL (0.1-1.0); BLOOD UREA NITROGEN 19 MG/DL (7-18); BUN/CREATININE RATIO 4.3 (5.4-32.0); CHLORIDE 102 MMOL/L (99-107); GLUCOSE 75 MG/DL (70-104); PHOSPHORUS 2.6 MG/DL (2.3-4.5); POTASSIUM 4.5 MMOL/L (3.5-5.1); SODIUM 137 MMOL/L (135-145); TOTAL CARBON DIOXIDE 29.4 MMOL/L (24-32); TOTAL PROTEIN 7.3 G/DL (6.4-8.2); eGFR 13 ML/MIN
[2022-08-29 07:38] LABS: CALCIUM 9.1 MG/DL (8.5-10.1)
[2022-08-29] MEDS: K and/or MAG REPLACEMENT MC SCH ×2 (08:00→20:54)
[2022-08-29] MEDS: vitamin B comp w/Vit. C tab 1 TAB TABLET PO SCH (08:41)
[2022-08-29] MEDS: calcium acetate 667mg (PhosLO) capsule PO SCH ×3 (08:41→20:56)
[2022-08-29] MEDS: heparin, porcine 5000 units/ml vial SQ SCH ×2 (08:42→20:56)
[2022-08-29] MEDS ORDERED: ceFAZolin/D5W- 1GM premix 50 ML IV SCH (10:55)
[2022-08-29 11:00] VITALS: BP 131/76
[2022-08-29] MEDS ORDERED: cefazolin/dext.iso 2gm/100ml 100 ML IV ONE (11:50)
[2022-08-29] MEDS: albumin (human) 25% 100 ML IV solution IV SCH (12:15)
--- NOTE | 2022-08-29 13:25 | NUR ---
Spoke to CATY Bright regarding appt for event monitor. States pt can go to MD Neri's office right after dc today.
--- NOTE | 2022-08-29 13:44 | NUR ---
Spoke to alo Watson with HD appt for friday; aware pt's regular HD days are , , FRI.
[2022-08-29 15:00] VITALS: BP 142/67
[2022-08-29 18:00] VITALS: BP 142/84
--- NOTE | 2022-08-29 18:16 | NUR ---
Problems reprioritized. Patient report given, questions answered & plan of care reviewed with CLARIBEL Sullivan.
[2022-08-29 22:00] VITALS: BP 132/72
[2022-08-30 02:00] VITALS: BP 151/77
[2022-08-30 06:00] VITALS: BP 138/87
[2022-08-30 07:49] LABS: ALANINE AMINOTRANSFERASE 7 U/L (12-78); ALBUMIN/GLOBULIN RATIO 0.8 (1.1-1.5); ALKALINE PHOSPHATASE 58 IU/L (46-116); ANION GAP 8 (8-16); ASPARTATE AMINO TRANSFERASE 24 U/L (10-37); BILIRUBIN,TOTAL 0.3 MG/DL (0.1-1.0); BLOOD UREA NITROGEN 36 MG/DL (7-18); BUN/CREATININE RATIO 5.4 (5.4-32.0); CHLORIDE 100 MMOL/L (99-107); CREATININE 6.68 MG/DL (0.60-1.10); GLUCOSE 81 MG/DL (70-104); MAGNESIUM 1.9 MG/DL (1.5-2.4); PHOSPHORUS 2.6 MG/DL (2.3-4.5); POTASSIUM 4.6 MMOL/L (3.5-5.1); SODIUM 134 MMOL/L (135-145); eGFR 8 ML/MIN
[2022-08-30] MEDS: K and/or MAG REPLACEMENT MC SCH (08:00)
[2022-08-30] MEDS: heparin, porcine 5000 units/ml vial SQ SCH (08:53)
[2022-08-30] MEDS: vitamin B comp w/Vit. C tab 1 TAB TABLET PO SCH (08:53)
[2022-08-30] MEDS: calcium acetate 667mg (PhosLO) capsule PO SCH ×2 (08:53→14:03)
[2022-08-30 10:04] LABS: EOSINOPHILS # (AUTO) 0.4 X10'3 (0-0.9); EOSINOPHILS % (AUTO) 9.8 % (0-6); HEMATOCRIT 27.4 % (42.0-52.0); HEMOGLOBIN 9.2 g/dl (14.0-17.9); LYMPHOCYTES # (AUTO) 1.2 X10'3 (1.1-4.8); LYMPHOCYTES % (AUTO) 25.7 % (21-51); MEAN CORPUSCULAR HEMOGLOBIN 31.7 PG (27.0-31.0); MEAN CORPUSCULAR HGB CONC 33.7 g/dL (33.0-36.5); MEAN PLATELET VOLUME 8.1 FL (7.4-10.4); MONOCYTES # (AUTO) 0.3 X10'3 (0-0.9); MONOCYTES % (AUTO) 6.5 % (2-12); NEUTROPHILS # (AUTO) 2.6 X10'3 (1.8-7.7); PLATELET COUNT 117 X10'3 (140-440); RED BLOOD COUNT 2.92 X10'6 (4.70-6.10); RED CELL DISTRIBUTION WIDTH 16.5 % (11.5-14.5); WHITE BLOOD COUNT 4.5 X10'3 (4.5-11.0)
[2022-08-30] MEDS: albumin (human) 25% 100 ML IV solution IV SCH (12:15)
[2022-08-30 12:30] VITALS: BP 138/81
--- NOTE | 2022-08-30 13:10 | NUR ---
PRESSURE ULCER EDUCATION: DEFINITION: A pressure ulcer is an area of skin that breaks down when you stay in one position too long. The constant pressure against the skin reduces the blood flow to that area and the affected tissue dies. CAUSES: "Being bedridden or in a wheelchair "Fragile skin "Having a chronic condition, such as diabetes or vascular disease "Inability to move certain parts of your body without assistance "Older age "Incontinence of urine or stool SYMPTOMS: "A reddened area that DOES NOT turn white when pressed on - this can be the beginning of a pressure ulcer "A blister, deep sore or a crater - these can be advanced pressure ulcers FIRST AID: "Relieve the pressure on this area "Keep the area clean and dry "Call your primary doctor if you see any of the above symptoms "DO NOT massage the area "DO NOT use a donut shaped or ring shaped pillow- these actually interfere with the blood flow and cause complications PREVENTION: "Check for pressure ulcers everyday "Change position at least every two hours to relieve pressure "Use items that help relieve pressure- pillows, sheepskin, foam padding, and powders. "Keep skin clean and dry "Eat healthy well balanced meals "Exercise daily IF YOU SEE ANY OF THESE SYMPTOMS WHILE IN THE HOSPITAL - TELL YOUR NURSE IMMEDIATELY. IF YOU SEE ANY OF THESE SYMPTOMS WHILE AT HOME OR HAVE ANY QUESTIONS OR CONCERNS ABOUT PRESSURE ULCERS - CALL YOUR PRIMARY DOCTOR IMMEDIATELY. Addendum: 08/30/22 at 1311 by Erna Simons LVN Amended: Links added.
--- NOTE | 2022-08-30 14:25 | NUR ---
Pt seen by WC and PT today. Pt discharged per MD Mccarthy. Discharge documents reviewed with pt, daughter Cheryl, and RICKEY. All verbalized understanding of medications, dc instructions/plan, and follow up appts. PIV and telemonitor removed. Pt wheeled with home wheelchair, took all belongings home.
[2022-09-02] MEDS ORDERED: ATOR20TA66 PO (11:09)
[2022-09-02] MEDS ORDERED: ASPI-611 PO (11:09)
== END 2022-08-30 14:19 | disposition home or self-care (01) | DRG 182 ==
LOC: ER 15:32 → ED HOLD 17:38 → PCU 3S 08-23 01:15 → CICU 2S 08-24 00:31 → PCU 3S 08-24 05:48
PROVIDERS: ADMIT Internal Medicine; ATTEND Internal Medicine
PROC: 03LC0ZZ Occlusion of Left Radial Artery, Open Approach (ICD-10-PCS; 2022-08-23)
PROC: 5A1D70Z Performance of Urinary Filtration, Intermittent, Less than 6 Hours Per Day (ICD-10-PCS; 2022-08-23)
PROC: 03BC0ZZ Excision of Left Radial Artery, Open Approach (ICD-10-PCS; principal; 2022-08-23 21:58)
PROC: 30233N1 Transfusion of Nonautologous Red Blood Cells into Peripheral Vein, Percutaneous Approach (ICD-10-PCS; 2022-08-26)
PROC: 5A1D70Z Performance of Urinary Filtration, Intermittent, Less than 6 Hours Per Day (ICD-10-PCS; 2022-08-26)
PROC: 4A00X4Z Measurement of Central Nervous Electrical Activity, External Approach (ICD-10-PCS; 2022-08-28)
PROC: 5A1D70Z Performance of Urinary Filtration, Intermittent, Less than 6 Hours Per Day (ICD-10-PCS; 2022-08-28)
DX: T82.7XXA Infection and inflammatory reaction due to other cardiac and vascular devices, implants and grafts, initial encounter (principal); A40.9 Streptococcal sepsis, unspecified; D61.818 Other pancytopenia; I12.0 Hypertensive chronic kidney disease with stage 5 chronic kidney disease or end stage renal disease; I21.A1 Myocardial infarction type 2; I95.3 Hypotension of hemodialysis; N17.9 Acute kidney failure, unspecified; T82.868A Thrombosis due to vascular prosthetic devices, implants and grafts, initial encounter; N18.6 End stage renal disease; Z20.822 Contact with and (suspected) exposure to COVID-19; R55 Syncope and collapse; B95.61 Methicillin susceptible Staphylococcus aureus infection as the cause of diseases classified elsewhere; L02.414 Cutaneous abscess of left upper limb; R65.20 Severe sepsis without septic shock; F10.21 Alcohol dependence, in remission; L76.22 Postprocedural hemorrhage of skin and subcutaneous tissue following other procedure; L03.114 Cellulitis of left upper limb; Y83.2 Surgical operation with anastomosis, bypass or graft as the cause of abnormal reaction of the patient, or of later complication, without mention of misadventure at the time of the procedure; Z79.82 Long term (current) use of aspirin; Z86.73 Personal history of transient ischemic attack (TIA), and cerebral infarction without residual deficits; Z99.2 Dependence on renal dialysis; Z91.041 Radiographic dye allergy status; Z79.899 Other long term (current) drug therapy; Y92.89 Other specified places as the place of occurrence of the external cause
CPT/HCPCS: 36415; 36430; 36600; 70450; 73200; 76881; 80048; 80053; 80061; 80202; 82803; 82948; 83605; 83735; 84100; 84145; 84484; 85018; 85025; 85027; 85651; 86140; 86885; 86900; 86901; 86920; 87040; 87070; 87075; 87077; 87081; 87102; 87186; 87340; 87811; 93005; 93306; 93880; 93931; 93971; 94799; 95720; 97110; 97162; 97530; 99285; A4618; A6223; A6258; A6402; A6407; A6446; A6449; A6455; A6550; A7000; G0257; G0378; J0690; J0692; J1644; J2150; J2250; J2405; J2543; J3010; J3370; J3490; J7030; J7040; P9016; P9045; P9047; Q4081